=== PATIENT | female | born 1970 | race Caucasian/White ===

== ENCOUNTER 2017-12-08 09:05 | Day surgery (SDC) | payer OTHER ==
[~2017-12-08] VITALS: Ht 157.5 cm; Wt 57.7 kg
[~2017-12-08 09:05] MED LIST: FLEXER; HYDR1TAB12; MELO15TA6 PO; OMEP-110 PO; POLY454P4; flexeril PO
[2017-12-08] MEDS ORDERED: SODIUM CHLORIDE 0.9% 1,000 ML IV SCH (09:50)
[2017-12-08 09:51] VITALS: BP 139/82
[2017-12-08] MEDS ORDERED: LIDOCAINE 2%, 20ML ONE (10:08)
[2017-12-08] MEDS ORDERED: MIDAZOLAM 1 MG/ML, 2ML ONE (10:29)
[2017-12-08] MEDS ORDERED: FENTANYL PF 100 MCG/2ML ONE (10:29)
[2017-12-08] MEDS ORDERED: NALOXONE 1 MG/ML, 2ML ONE (10:30)
[2017-12-08] MEDS ORDERED: FLUMAZENIL 0.1 MG/1 ML, 5ML ONE (10:30)
[2017-12-08 12:07] LABS: CELLS COUNTED 2
== END 2017-12-08 11:20 | disposition home or self-care (01) ==
LOC: OUT 09:05
PROVIDERS: ATTEND Orthopaedic Surgery Adult Reconstructive Orthopaedic Surgery
DX: M19.011 Primary osteoarthritis, right shoulder (principal); Z79.899 Other long term (current) drug therapy
CPT/HCPCS: 20610; 77012; 87070; 87075; 87205; 89051; J3490; 20604; 75989; J2250; J3010; J2310